=== PATIENT | male | born 1945 | race Caucasian/White ===

== ENCOUNTER 2021-06-28 10:13 | Emergency (ER) | payer MEDICARE, OTHER ==
[2021-06-28] MEDS ORDERED: Ketorolac 30 MG/ML SDV IM ONE (10:36)
--- NOTE | 2021-06-28 10:36 | EDM.PDOC ---
ED HPI GENERAL MEDICAL PROBLEM - General Chief Complaint: Upper Extremity Injury/Pain Stated Complaint: UNABLE TO USE LEFT WRISTE Time Seen by Provider: 06/28/21 10:15 Source of Information: Reports: Patient History Limitations: Reports: No Limitations - History of Present Illness INITIAL COMMENTS - FREE TEXT/NARRATIVE: The emergency department with complaints of a left wrist injury. Patient states that approximately 24 hours ago he was lifting some heavy corn eggs and ended up twisting his wrist he noticed the discomfort right away but was able to move and use it throughout the day. However as the course of the afternoon and evening went on the patient states that he had decreased range of motion and increased amount of pain and tenderness. He states that he does have some sharp shooting pains that radiate up his arm from his wrist. Especially when he moves it. Patient states that he has limited range of motion due to the pain and discomfort and has difficulty in finding positions of comfort due to the pain. 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 Left Wrist Pain Score (Numeric/FACES): 9 - Related Data Allergies Allergy/AdvReac Type Severity Reaction Status Date / Time No Known Drug Allergies Allergy Other Verified 06/28/21 10:36 Home Meds: Home Meds Albuterol Sulfate [Albuterol Sulfate HFA] 2 puff INH QID 04/02/14 [History] Albuterol [Proventil Neb Soln] 1 dose NEB QID PRN 04/02/14 [History] Aspirin [Halfprin] 81 mg PO Q2D 04/02/14 [History] Insulin Isophane NPH, Human [NovoLIN N] 25 - 30 units SQ BIDM 04/02/14 [History] Metoprolol Succinate [Toprol Xl] 100 mg PO DAILY 04/02/14 [History] Pravastatin [Pravachol] 20 mg PO DAILY 04/02/14 [History] Insulin Degludec [Tresiba] 80 unit SQ DAILY 06/04/19 [History] Losartan/Hydrochlorothiazide [Hyzaar 100-25 Tablet] 1 each PO DAILY 06/04/19 [History] Semaglutide [Ozempic] 0.5 mg SUBCUT Q7D 06/04/19 [History] Tamsulosin [Tamsulosin 24 Hr] 0.4 mg PO DAILY 06/04/19 [History] metFORMIN [Glucophage XR] 500 - 1,000 mg PO BIDMEALS 06/04/19 [History] Past Medical History HEENT History: Reports: Cataract Other HEENT History: 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 RETINAL LESION Cardiovascular History: Reports: Heart Failure, High Cholesterol, Hypertension, Pulmonary Hypertension Respiratory History: Reports: Asthma Gastrointestinal History: Reports: Colon Polyp, Hiatal Hernia Musculoskeletal History: Reports: Osteoarthritis Endocrine/Metabolic History: Reports: Diabetes, Type II, Obesity/BMI 30+ Oncologic (Cancer) History: Reports: Prostate Dermatologic History: Reports: Other (See Below) Other Dermatologic History: ONYCHOMYCOSIS - Past Surgical History HEENT Surgical History: Reports: Cataract Surgery Other HEENT Surgeries/Procedures: YAG CAPSULOTOMY-LEFT EYE Cardiovascular Surgical History: Reports: None Respiratory Surgical History: Reports: None GI Surgical History: Reports: Colonoscopy, Hernia Repair/Other Male Surgical History: Reports: None Musculoskeletal Surgical History: Reports: Knee Replacement, Other (See Below) Other Musculoskeletal Surgeries/Procedures:: left TKA Social & Family History - Caffeine Use Caffeine Use: Reports: Coffee ED ROS GENERAL - Review of Systems Review Of Systems: Comprehensive ROS is negative, except as noted in HPI. Constitutional: Reports: No Symptoms HEENT: Reports: No Symptoms Respiratory: Reports: No Symptoms Cardiovascular: Reports: No Symptoms Endocrine: Reports: No Symptoms GI/Abdominal: Reports: No Symptoms : Reports: No Symptoms Musculoskeletal: Reports: Arm Pain Skin: Reports: No Symptoms Neurological: Reports: No Symptoms Psychiatric: Reports: No Symptoms Hematologic/Lymphatic: Reports: No Symptoms Immunologic: Reports: No Symptoms ED EXAM, GENERAL - Physical Exam Exam: See Below Exam Limited By: No Limitations General Appearance: Alert, WD/WN, No Apparent Distress Head: Atraumatic, Normocephalic Respiratory/Chest: No Respiratory Distress, No Accessory Muscle Use, Chest Non- Tender Cardiovascular: Normal Peripheral Pulses, Regular Rate, Rhythm Peripheral Pulses: 4+: Radial (L), Radial (R) Extremities: Other (left wrist- nild swelling, limited ROM due to pain. mild bruising noted ) Neurological: Alert, Oriented, Normal Gait Psychiatric: Normal Affect, Normal Mood Skin Exam: Warm, Dry, Intact, Normal Color Course - Vital Signs Last Recorded V/S: Last Vital Signs Temp 36.5 C 06/28/21 10:05 Pulse 57 L 06/28/21 10:05 Resp 20 06/28/21 10:05 BP 172/63 H 06/28/21 10:05 Pulse Ox 97 06/28/21 10:05 - Orders/Labs/Meds Orders: Active Orders 24 hr Category Date Time Status DME for Discharge [COMM] Stat Oth 06/28/21 11:43 Ordered Meds: Medications Discontinued Medications Generic Name Dose Route Start Last Admin Trade Name Anmol PRN Reason Stop Dose Admin Ketorolac Tromethamine 30 mg 06/28/21 10:36 06/28/21 10:49 Ketorolac 30 Mg/Ml Sdv IM 06/28/21 10:37 30 mg ONETIME ONE Administration - Re-Assessments/Exams Free Text/Narrative Re-Assessment/Exam: 06/28/21 11:44 feels better after toradol Departure - Departure Time of Disposition: 11:50 Disposition: Home, Self-Care 01 Condition: Good Clinical Impression: Left wrist sprain Qualifiers: Encounter type: initial encounter Qualified Code(s): S63.502A - Unspecified sprain of left wrist, initial encounter - Discharge Information *PRESCRIPTION DRUG MONITORING PROGRAM REVIEWED*: Not Applicable *COPY OF PRESCRIPTION DRUG MONITORING REPORT IN PATIENT GINA: Not Applicable Instructions: Wrist Sprain, Adult Referrals: Lit Olivarez MD [Primary Care Provider] - Forms: ED Department Discharge Additional Instructions: 1. Rest 2. wear splint for 5-7 days as needed to help with any pain or discomfort 3. Can use tylenol and ibuprofen as needed for pain and discomfort 4. Diet as tolerated 5. Activity as tolerated 6. Elevated the injured area above the level of the heart to decrease swelling and discomfort. 7. Use ice 3-4 times a day at 20-minute intervals to help with any swelling and discomfort 8. Follow-up with your primary care provider symptoms continue or to progress 9. Follow with any questions or concerns 10. Discharge information has been provided regarding your injury Sepsis Event Note (ED) - Focused Exam Vital Signs: Vital Signs Temp Pulse Resp BP Pulse Ox 06/28/21 10:05 36.5 C 57 L 20 172/63 H 97 - My Orders Last 24 Hours: My Active Orders 06/28/21 11:43 DME for Discharge [COMM] Stat - Assessment/Plan Last 24 Hours: My Active Orders 06/28/21 11:43 DME for Discharge [COMM] Stat Assessment:: 1. left wrist injury Plan: 1. X-ray completed in the emergency department results reviewed with the patient 2. Ice Applied to the affected limb 3. Medication offered to the patient 4. Thumb spica ordered 5. Education regarding splinting, activity, [id number] medications, and follow-up care provided. 6. All questions and concerns addressed with the patient prior to discharge
--- NOTE | 2021-06-28 11:45 | CR ---
[id number] RAD/RAD Wrist Left 3V Min EXAM: RAD Wrist Left 3V Min INDICATION: TRAUMA. COMPARISON: None. DISCUSSION: Possible chronic dorsal triquetral avulsion fracture. A small corticated ossicle along the dorsal aspect of the radiocarpal joint on the lateral view likely represents a small loose body. Chondrocalcinosis TFCC. Soft tissue swelling throughout the wrist with no acute fracture or dislocation identified. Moderate distal radioulnar, radiocarpal and mild to moderate triscaphe and first carpometacarpal osteoarthritis. IMPRESSION: 1. Soft tissue swelling. No acute osseous abnormality. Irving Charles MD 06/28/21 1144 Thank you for allowing us to participate in the care of your patient.
== END 2021-06-28 11:50 | disposition home or self-care (01) ==
LOC: VM.ED 10:13
DX: S63.502A Unspecified sprain of left wrist, initial encounter (principal); I11.0 Hypertensive heart disease with heart failure; I50.9 Heart failure, unspecified; E78.00 Pure hypercholesterolemia, unspecified; J45.909 Unspecified asthma, uncomplicated; M19.90 Unspecified osteoarthritis, unspecified site; E11.9 Type 2 diabetes mellitus without complications; E66.9 Obesity, unspecified; Z68.41 Body mass index [BMI] 40.0-44.9, adult; Z79.82 Long term (current) use of aspirin; Z79.4 Long term (current) use of insulin; Z79.899 Other long term (current) drug therapy; X50.1XXA Overexertion from prolonged static or awkward postures, initial encounter
CPT/HCPCS: 29125; 73110-LT; 96372; 99283; 99283-25; J1885